=== PATIENT | male | born 1950 | race Caucasian/White ===

== ENCOUNTER → 2023-01-14 09:30 | Outpatient (BNVA) | payer MEDICARE, SELFPAY | PROVIDERS: PCP Family Medicine; Visit Provider Podiatrist Foot & Ankle Surgery | DX: E11.69 Type 2 diabetes mellitus with other specified complication; M72.2 Plantar fascial fibromatosis; M21.41 Flat foot [pes planus] (acquired), right foot; Z79.84 Long term (current) use of oral hypoglycemic drugs; M21.42 Flat foot [pes planus] (acquired), left foot | CPT/HCPCS: 73630; 99204 ==

== ENCOUNTER → 2023-02-11 09:58 | Outpatient (BNVA) | payer MEDICARE, SELFPAY | PROVIDERS: PCP Family Medicine; Visit Provider Podiatrist Foot & Ankle Surgery | DX: M72.2 Plantar fascial fibromatosis (principal) | CPT/HCPCS: 99213 ==

== ENCOUNTER 2023-03-05 12:12 | Outpatient (CLI) | payer MEDICARE, SELFPAY | END 2023-03-05 12:13 | disposition home or self-care (01) | LOC: SPT 12:13 | PROVIDERS: PCP Family Medicine; Visit Provider Podiatrist Foot & Ankle Surgery | DX: Z46.89 Encounter for fitting and adjustment of other specified devices (principal); M79.673 Pain in unspecified foot; E11.9 Type 2 diabetes mellitus without complications; M72.2 Plantar fascial fibromatosis; M21.40 Flat foot [pes planus] (acquired), unspecified foot | CPT/HCPCS: 97760; L3030 ==

== ENCOUNTER → 2023-03-17 11:00 | Outpatient (BNVA) | payer MEDICARE, SELFPAY | PROVIDERS: PCP Family Medicine; Visit Provider Otolaryngology | DX: J34.2 Deviated nasal septum (principal); J34.3 Hypertrophy of nasal turbinates; J32.9 Chronic sinusitis, unspecified | CPT/HCPCS: 99203 ==

== ENCOUNTER 2023-03-27 11:47 | Outpatient (CLI) | payer MEDICARE, SELFPAY ==
--- NOTE | 2023-03-27 12:30 | CT_ITS ---
WS: [id number] CT SINUSES TECHNIQUE: Noncontrast CT of the paranasal sinuses with coronal and sagittal reformatted images. CLINICAL INFORMATION: sinuses COMPARISON: None. DLP: 368.[address] scans at [facility] use at least one of these dose optimization techniques: automated e xposure control; mA and/or kV adjustment per patient size (includes targeted exams where dose is matc hed to clinical indication); or iterative reconstruction. FINDINGS: Mild 2-3 mm nasal septal deviation. RIGHT abby bullosa. Retention cysts or polyps in the maxillary sinuses largest measuring 1.9 x 1.5 cm on the LEFT and lobulated retention cyst or polyp in the RIGHT maxillary sinus measuring 2.3 x 1.0 cm. Mild narrowing of the ostiomeatal units bilaterally with mild mucosal thickening. Small retention cys t or polyps in the ethmoid air cells with mild mucosal thickening. Frontal sinuses well aerated. Hypo plastic RIGHT frontal sinus. Sphenoid sinuses are well aerated. Sphenoid ostia are patent. Mastoid ai r cells are well aerated. Normal posterior nasopharynx. Normal parapharyngeal fat. Intracranial vascular calcification. IMPRESSION: 1. Mild nasal septal deviation measuring 2 to 3 mm. 2. RIGHT abby bullosa. 3. Retention cysts or polyps in the maxillary sinuses and ethmoid air cells described above. 4. Ostiomeatal units are patent. 5. Mastoid air cells are well aerated.
== END 2023-03-27 11:48 | disposition home or self-care (01) ==
LOC: RAD 11:48
PROVIDERS: PCP Family Medicine; Visit Provider Otolaryngology
DX: J32.9 Chronic sinusitis, unspecified (principal); J34.2 Deviated nasal septum; J34.3 Hypertrophy of nasal turbinates
CPT/HCPCS: 70486

== ENCOUNTER 2023-05-13 10:41 | Outpatient (CLI) | payer MEDICARE, SELFPAY | END 2023-05-13 10:42 | disposition home or self-care (01) | LOC: SPT 10:42 | PROVIDERS: PCP Family Medicine; Visit Provider Podiatrist Foot & Ankle Surgery | DX: Z46.89 Encounter for fitting and adjustment of other specified devices (principal); M72.2 Plantar fascial fibromatosis | CPT/HCPCS: 97760; 99213; L4397 ==

== ENCOUNTER → 2024-04-21 10:11 | Outpatient (BNVA) | payer MEDICARE, SELFPAY | PROVIDERS: PCP Family Medicine; Visit Provider Student in an Organized Health Care Education/Training Program | DX: M72.0 Palmar fascial fibromatosis [Dupuytren] (principal); M79.641 Pain in right hand; S63.051A Subluxation of other carpometacarpal joint of right hand, initial encounter; W19.XXXA Unspecified fall, initial encounter; S62.316A Displaced fracture of base of fifth metacarpal bone, right hand, initial encounter for closed fracture; S63.056A Dislocation of other carpometacarpal joint of unspecified hand, initial encounter; Y99.9 Unspecified external cause status | CPT/HCPCS: 73130; 99203 ==

== ENCOUNTER 2024-04-21 14:09 | Outpatient (CLI) | payer MEDICARE, SELFPAY ==
--- NOTE | 2024-04-21 15:00 | CTR_ITS ---
PROCEDURE INFORMATION: Exam: CT Right Upper Extremity Without Contrast, Hand Exam date and time: 04/21/2024 2:23 PM Age: 73 years old Clinical indication: Injury or trauma; Fall; Blunt trauma (contusions or hematomas); Hand; Right; Additional info: Right hand injury due to fall, stat CT of right hand TECHNIQUE: Imaging protocol: Computed tomography of the right upper extremity without contrast. Exam focused on the hand. Radiation optimization: All CT scans at this facility use at least one of these dose optimization techniques: automated exposure control; mA and/or kV adjustment per patient size (includes targeted exams where dose is matched to clinical indication); or iterative reconstruction. COMPARISON: CR XR hand RT min 3V* [id number] 04/21/2024 10:12 AM RADIATION DOSE METRICS: Total DLP (mGy-cm): 139.38 FINDINGS: Bones/joints: Acute volar-ulnar dislocation of the 5th metacarpal involving the 5th carpometacarpal articulation with subcentimeter cortical chip type/avulsive fragments along the ulnar aspect of the hamate and inferior aspect of the metacarpal base. Age-indeterminate subcentimeter calcification along the volar radial aspect of the base of the 5th metacarpal (image 27 of series 18). Chronic appearing subcentimeter calcifications along the radial aspect of the capitate, possibly sequela of prior trauma. Radiocarpal articulation and carpal rows are otherwise intact. 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 Moderate-severe index and ring finger MCP joint osteoarthritis. Moderate-severe thumb CMC, MCP interphalangeal joint osteoarthritis. Os styloideum (carpal boss noted along the dorsal aspect of the base of the 3rd metacarpal. Soft tissues: Soft tissue edema of the wrist with suspected radiocarpal joint effusion. Muscles and tendons are grossly intact. No evidence of fluid collection or hematoma. CT/CT hand RT wo con* [id number] IMPRESSION: 1. Acute 5th carpometacarpal dislocation with cortical chip/avulsive fragments. Orthopedic evaluation is recommended.
== END 2024-04-21 14:10 | disposition home or self-care (01) ==
LOC: RAD 14:10
PROVIDERS: PCP Family Medicine; Visit Provider Student in an Organized Health Care Education/Training Program
DX: S62.316A Displaced fracture of base of fifth metacarpal bone, right hand, initial encounter for closed fracture (principal); S63.056A Dislocation of other carpometacarpal joint of unspecified hand, initial encounter; Y99.9 Unspecified external cause status
CPT/HCPCS: 73200